=== PATIENT | male | born 2000 | race Caucasian/White ===

== ENCOUNTER 2020-07-07 23:46 | Emergency (ER) | payer SELFPAY ==
[~2020-07-07] VITALS: Ht 175.3 cm; Wt 77.1 kg
[2020-07-08] MEDS ORDERED: EPIPEN0.3 MG/0.3 IM (00:45)
== END 2020-07-08 01:00 | disposition home or self-care (01) ==
LOC: ER 23:46
DX: R06.02 Shortness of breath (principal)
CPT/HCPCS: 96374; 96375; 99282; J1200; J2930; J7030